=== PATIENT | male | born 1970 | race African-American/Black ===

== ENCOUNTER 2017-06-15 14:41 | Emergency (ER) | payer SELFPAY ==
[~2017-06-15] VITALS: Ht 172.7 cm; Wt 79.0 kg
[2017-06-15 15:06] VITALS: BP 112/58
== END 2017-06-15 17:16 | disposition home or self-care (01) ==
LOC: ER 16:42
DX: S46.212A Strain of muscle, fascia and tendon of other parts of biceps, left arm, initial encounter (principal); X50.0XXA Overexertion from strenuous movement or load, initial encounter; Y93.89 Activity, other specified; Y92.63 Factory as the place of occurrence of the external cause; F17.210 Nicotine dependence, cigarettes, uncomplicated; Z93.3 Colostomy status
CPT/HCPCS: 99282